=== PATIENT | male | born 1955 | race Caucasian/White ===

== ENCOUNTER → 2025-03-06 | Outpatient (CLI) | payer MEDICARE, SELFPAY ==
--- NOTE | 2025-03-06 11:00 | XR_ITS ---
Examination: Lumbar spine, 5 views Technique: Lumbar spine AP, lateral, coned lateral lower lumbar spine, bilateral obliques 5 views Exam date and time: March 06, 2025, 1123 hours INDICATIONS: Low back pain beginning 5 years ago. FINDINGS: Short angle lumbar levoscoliosis 12 degrees Moderate osteopenia Diffuse advanced facet arthropathy Diffuse moderate to advanced lumbar degenerative disc disease most prominent L2-L3, L4-L5, L5-S1 IMPRESSION: Diffuse moderate to advanced lumbar degenerative disc disease, most prominent at L2-L3, L4-L5, L5-S1
--- NOTE | 2025-03-06 11:00 | XR_ITS ---
Examination: Foot, right, 3 views Technique: AP, oblique, lateral views foot, 3 views Date and time of exam: March 06, 2025, 1123 hours INDICATIONS: Right foot pain beginning 8 months ago. FINDINGS: Mild to moderate narrowing first metatarsophalangeal joint No fracture or dislocation No cortical bone destruction 3 mm plantar bony calcaneal spur IMPRESSION: Mild to moderate narrowing first metatarsophalangeal joint
== END | disposition home or self-care (01) ==
PROVIDERS: PCP Physician Assistant; Referring Provider Physician Assistant; Visit Provider Physician Assistant
DX: M25.871 Other specified joint disorders, right ankle and foot (principal); M51.360 Other intervertebral disc degeneration, lumbar region with discogenic back pain only; M51.370 Other intervertebral disc degeneration, lumbosacral region with discogenic back pain only
CPT/HCPCS: 72110; 73630